=== PATIENT | male | born 1945 | race Caucasian/White ===

== ENCOUNTER 2020-01-07 10:18 | Inpatient (IN) | payer OTHER ==
[~2020-01-07] VITALS: Ht 180.3 cm; Wt 79.2 kg
[2020-01-07 12:54] VITALS: BP 127/72
[2020-01-07] MEDS ORDERED: TAMS0.4C97 PO (13:08)
[2020-01-07] MEDS ORDERED: CLOP75TA PO (13:08)
[2020-01-07] MEDS ORDERED: MELA5TAB20 PO (13:08)
[2020-01-07] MEDS ORDERED: LORA-254 PO (13:08)
[2020-01-07] MEDS ORDERED: VENL75CA6 PO (13:08)
[2020-01-07] MEDS ORDERED: DOCU100C28 PO (13:08)
[2020-01-07] MEDS ORDERED: BACL20TA PO (13:08)
[2020-01-07] MEDS ORDERED: PANT40TA6 PO (13:08)
[2020-01-07] MEDS ORDERED: FENO160T PO (13:08)
[2020-01-07] MEDS ORDERED: FOLI0.8C PO (13:08)
[2020-01-07] MEDS ORDERED: CITA40TA5 PO (13:08)
--- NOTE | 2020-01-07 13:35 | NUR ---
NURSING NOTE ADMIT PT ADMIT FOR RESPITE CARE AT 1300 WITH [facility]. PT IS A&OX3. PT DOES NOT HAVE ANY WOUNDS NOTED, DOES NEED TO FLOAT HIS HEELS, LOOKS TO BE A BIT CONTACTED IN THE KNEES AND LEFT HAND, UNABLE TO STAND, CISCO LIFT IF NEEDED. VITALS NURSE HERE AT BEDSIDE TO EVALUATE PT. PT MEDICATIONS ENTERED INTO COMPUTER AND SENT TO PHARMACY. WILL CONTINUE TO MONITOR. EVANGELIST VILLAGOMEZ. Addendum: 01/07/20 at 1633 by DAHLIA BROWN RN RN [facility] NURSE*
[2020-01-07] MEDS ORDERED: VENL37.5 PO (13:43)
[2020-01-07] MEDS ORDERED: LEVE100020 PO (13:43)
[2020-01-07] MEDS ORDERED: LORazepam 1 MG TABLET PO PRN (13:45)
[2020-01-07] MEDS ORDERED: MORPHINE SULFATE 20 MG/ML CONC SOLUTION. PO/SL PRN (14:00)
--- NOTE | 2020-01-07 16:34 | NUR ---
NURSING NOTE PT RESTING COMFORTABLY IN THE BED. PT REQUEST FOR COFFEE AND GIVEN EXTRA PILLOW. PT CALM AND COOPERATIVE WITH ALL CARES THUS FAR. USED URINAL IN BED. WILL CONTINUE TO MONITOR. EVANGELIST VILLAGOMEZ.
[2020-01-07] MEDS: BACLOFEN 20 MG TABLET PO SCH ×2 (17:11→20:26)
--- NOTE | 2020-01-07 18:28 | NUR ---
NURSING NOTE SPOKE WITH PT DAUGHTER ROWDY, WHO HAD CONCERNS ABOUT URINE RETENTION. PT HAD A WET BRIEF TODAY. BLADDER SCAN REVEALS 126MLS. WILL CONTINUE TO MONITOR. EVANGELIST VILLAGOMEZ.
[2020-01-07] MEDS: MELATONIN 3 MG TABLET PO SCH (20:26)
[2020-01-07] MEDS: levETIRAcetam 500 MG TABLET PO SCH (20:26)
[2020-01-07] MEDS: PANTOPRAZOLE 40 MG TABLET. PO SCH (20:27)
--- NOTE | 2020-01-08 00:03 | NUR ---
Nursing Note Pt pleasant calm and cooperative. Takes meds whole, denies complaints. called for an update, she was happy for the ability to make her own drGuanaco appointments. Pt is a turn needs total assist for bed mobility.
[2020-01-08 05:27] VITALS: BP 126/62
[2020-01-08] MEDS: TAMSULOSIN 0.4 MG CAP.ER.24H. PO SCH (08:48)
[2020-01-08] MEDS: CLOPIDOGREL BISULFATE 75 MG TABLET PO SCH (08:48)
[2020-01-08] MEDS: VENLAFAXINE XR 37.5 MG CAP.ER.24H. PO SCH (08:48)
[2020-01-08] MEDS: BACLOFEN 20 MG TABLET PO SCH ×4 (08:48→20:51)
[2020-01-08] MEDS: PANTOPRAZOLE 40 MG TABLET. PO SCH ×2 (08:48→20:51)
[2020-01-08] MEDS: FENOFIBRATE NANOCRYSTALLIZED 145 MG TABLET PO SCH (08:48)
[2020-01-08] MEDS: DOCUSATE SODIUM 100 MG CAPSULE PO SCH (08:48)
[2020-01-08] MEDS: FOLIC ACID 1 MG TABLET PO SCH (08:48)
[2020-01-08] MEDS: levETIRAcetam 500 MG TABLET PO SCH ×2 (08:48→20:51)
[2020-01-08] MEDS: CITALOPRAM 20 MG TABLET. PO SCH (08:48)
[2020-01-08] MEDS ORDERED: VENLAFAXINE XR 37.5 MG CAP.ER.24H. PO SCH (09:00)
[2020-01-08 10:54] VITALS: BP 118/60
--- NOTE | 2020-01-08 16:37 | HP ---
ADMIT DATE: HISTORY OF PRESENT ILLNESS: The patient is a 74-year-old male patient who was admitted for respite care. He is on hospice. On questioning him, he denied any complaint. Apparently, he lives at home with his and his past medical history is significant for right middle cerebral artery territory infarct with left-sided hemiplegia. He is mostly bedbound, wheelchair bound. He has a scooter at home. He has benign prostatic hypertrophy, seizure disorder, gastroesophageal reflux disease, and also hyperlipidemia according to him. PAST SURGICAL HISTORY: Unremarkable. ALLERGIES: He has no known drug allergies. MEDICATIONS: He is currently on venlafaxine 75 mg once a day, folic acid 1 mg once a day, fenofibrate 145 mg once a day, citalopram hydrobromide for Celexa 40 mg once a day, Flomax 0.4 mg daily, Colace 200 mg daily, Plavix 75 mg once a day, melatonin 6 mg at bedtime, Keppra 1000 mg twice a day, Protonix 40 mg twice a day, baclofen 20 mg 4 times a day, morphine sulfate 10 mg every 2 hours as needed, lorazepam 1 mg every 4 hours as needed. PHYSICAL EXAMINATION: GENERAL: On examining him, he looked pale, no jaundice, cyanosis, or thyromegaly. No jugular venous distention or limb edema. VITAL SIGNS: His heart rate was 56, blood pressure was 126/62, temperature was 98.1, respiratory rate was 18, and oxygen saturation was 92% on room air. HEAD, EYES, EARS, NOSE, AND THROAT: Showed normocephalic, atraumatic. NECK: Supple. CARDIAC: Normal first and second heart sounds. No gallop, rub, or murmur. CHEST: Clear to auscultation. No crepitation or rhonchi. ABDOMEN: Distended, soft, nontender. NEUROLOGIC: He was awake, alert, responding appropriately. He has left-sided hemiplegia. He apparently is incontinent of urine. PLAN: To continue with all his current medications. MRAÍA TRUJILLO MD DR: [email or web address]/vj JOB#: [id number] / [id number]
--- NOTE | 2020-01-08 16:41 | NUR ---
NSG NOTE; RESPITE CARE PT HERE FOR RESPITE CARE X 5 DAYS SO CAN SEE HER DOCTORS FOR APPTS PT NEEDS ASSIST FOR TQ2H UP TO WHEEL CHAIR USING LIFT WITH X2 ASSIST NEEDS SET UP FOR MEALS AND IS ABLE TO SLOWLY FEED HIMSELF HAS BEEN CONTINENT OF URINE TODAY USING URINAL WITH ASSIST
[2020-01-08] MEDS: MELATONIN 3 MG TABLET PO SCH (20:51)
[2020-01-09 05:49] VITALS: BP 123/67
[2020-01-09] MEDS: BACLOFEN 20 MG TABLET PO SCH ×4 (08:13→20:26)
[2020-01-09] MEDS: FENOFIBRATE NANOCRYSTALLIZED 145 MG TABLET PO SCH (08:13)
[2020-01-09] MEDS: CITALOPRAM 20 MG TABLET. PO SCH (08:14)
[2020-01-09] MEDS: CLOPIDOGREL BISULFATE 75 MG TABLET PO SCH (08:14)
[2020-01-09] MEDS: PANTOPRAZOLE 40 MG TABLET. PO SCH ×2 (08:14→20:25)
[2020-01-09] MEDS: DOCUSATE SODIUM 100 MG CAPSULE PO SCH (08:14)
[2020-01-09] MEDS: levETIRAcetam 500 MG TABLET PO SCH ×2 (08:14→20:26)
[2020-01-09] MEDS: FOLIC ACID 1 MG TABLET PO SCH (08:14)
[2020-01-09] MEDS: VENLAFAXINE XR 37.5 MG CAP.ER.24H. PO SCH (08:14)
[2020-01-09] MEDS: TAMSULOSIN 0.4 MG CAP.ER.24H. PO SCH (08:14)
[2020-01-09 11:17] VITALS: BP 121/67
--- NOTE | 2020-01-09 14:58 | NUR ---
NURSING NOTE: RESPITE CARE PT ADMITTED FOR RESPITE CARE X 5 DAYS. PT IN BED UPON ASSESSMENT AND MEDICATION ADMINISTRATION THIS AM. PT TAKES PILLS WHOLE. PT UP TO CHAIR WITH LIFT. PT FEEDS HIMSELF WITH SET UP HELP, PT TOLERATED MEALS WELL. PT HAS BEEN CONTINENT OF BOWEL AND BLADDER TODAY. PT HAS NO COMPLAINTS. WILL CONTINUE TO MONITOR. EVANGELIST UREÑA
[2020-01-09 20:13] VITALS: BP 120/64
[2020-01-09] MEDS: MELATONIN 3 MG TABLET PO SCH (20:25)
--- NOTE | 2020-01-10 04:28 | NUR ---
Pt pleasant and cooperative with cares this shift. Assisted with turning q2hrs. Pt cont vs incont of B+B at HS. Pt c/o constipation at beginning of shift. LBM 01/06. Noted active bowel sounds x4 quad. Encouraged fluids and pt took a prune juice. Pt has since had 2 small formed BM's through the night. Resting comfortably between turns.
[2020-01-10 07:53] VITALS: BP 128/56
[2020-01-10] MEDS: FOLIC ACID 1 MG TABLET PO SCH (08:16)
[2020-01-10] MEDS: TAMSULOSIN 0.4 MG CAP.ER.24H. PO SCH (08:16)
[2020-01-10] MEDS: VENLAFAXINE XR 37.5 MG CAP.ER.24H. PO SCH (08:16)
[2020-01-10] MEDS: CLOPIDOGREL BISULFATE 75 MG TABLET PO SCH (08:16)
[2020-01-10] MEDS: levETIRAcetam 500 MG TABLET PO SCH ×2 (08:16→21:35)
[2020-01-10] MEDS: DOCUSATE SODIUM 100 MG CAPSULE PO SCH (08:16)
[2020-01-10] MEDS: FENOFIBRATE NANOCRYSTALLIZED 145 MG TABLET PO SCH (08:16)
[2020-01-10] MEDS: CITALOPRAM 20 MG TABLET. PO SCH (08:16)
[2020-01-10] MEDS: PANTOPRAZOLE 40 MG TABLET. PO SCH ×2 (08:17→21:35)
[2020-01-10] MEDS: BACLOFEN 20 MG TABLET PO SCH ×4 (08:17→21:35)
[2020-01-10 20:25] VITALS: BP 119/55
[2020-01-10] MEDS: MELATONIN 3 MG TABLET PO SCH (21:34)
[2020-01-11 05:50] VITALS: BP 148/70
[2020-01-11 07:47] VITALS: BP 140/63
[2020-01-11] MEDS: FOLIC ACID 1 MG TABLET PO SCH (09:21)
[2020-01-11] MEDS: levETIRAcetam 500 MG TABLET PO SCH ×2 (09:21→20:52)
[2020-01-11] MEDS: TAMSULOSIN 0.4 MG CAP.ER.24H. PO SCH (09:21)
[2020-01-11] MEDS: PANTOPRAZOLE 40 MG TABLET. PO SCH ×2 (09:21→20:52)
[2020-01-11] MEDS: CITALOPRAM 20 MG TABLET. PO SCH (09:21)
[2020-01-11] MEDS: DOCUSATE SODIUM 100 MG CAPSULE PO SCH (09:21)
[2020-01-11] MEDS: BACLOFEN 20 MG TABLET PO SCH ×4 (09:21→20:52)
[2020-01-11] MEDS: FENOFIBRATE NANOCRYSTALLIZED 145 MG TABLET PO SCH (09:21)
[2020-01-11] MEDS: CLOPIDOGREL BISULFATE 75 MG TABLET PO SCH (09:21)
[2020-01-11] MEDS: VENLAFAXINE XR 37.5 MG CAP.ER.24H. PO SCH (09:21)
[2020-01-11 19:40] VITALS: BP 128/71
[2020-01-11] MEDS: MELATONIN 3 MG TABLET PO SCH (20:52)
--- NOTE | 2020-01-11 22:10 | NUR ---
Nursing Note: Pt lying in bed watching television at shift change. Pt A/O, calm, cooperative, and pleasant. Assistance with bed mobility and turn q2 hours provided. Pt compliant with medications administered whole, tolerated well. Pt able to make his needs known and is currently resting comfortably in bed.
[2020-01-12] MEDS: CLOPIDOGREL BISULFATE 75 MG TABLET PO SCH (08:11)
[2020-01-12] MEDS: FOLIC ACID 1 MG TABLET PO SCH (08:12)
[2020-01-12] MEDS: levETIRAcetam 500 MG TABLET PO SCH (08:12)
[2020-01-12] MEDS: BACLOFEN 20 MG TABLET PO SCH (08:12)
[2020-01-12] MEDS: CITALOPRAM 20 MG TABLET. PO SCH (08:12)
[2020-01-12] MEDS: VENLAFAXINE XR 37.5 MG CAP.ER.24H. PO SCH (08:12)
[2020-01-12] MEDS: TAMSULOSIN 0.4 MG CAP.ER.24H. PO SCH (08:12)
[2020-01-12] MEDS: DOCUSATE SODIUM 100 MG CAPSULE PO SCH (08:12)
[2020-01-12] MEDS: FENOFIBRATE NANOCRYSTALLIZED 145 MG TABLET PO SCH (08:12)
[2020-01-12] MEDS: PANTOPRAZOLE 40 MG TABLET. PO SCH (08:13)
[2020-01-12 11:29] VITALS: BP 146/61
--- NOTE | 2020-01-12 12:10 | NUR ---
Patient left via wheelchair in a stable condition. Patient had his belongings and secure transport was the transportation provider. Patient A&Ox4.
== END 2020-01-12 12:10 | disposition home or self-care (01) | DRG 57 ==
LOC: 1 SOUTH 12:44
PROVIDERS: ADMIT Internal Medicine; ATTEND Internal Medicine
DX: I69.354 Hemiplegia and hemiparesis following cerebral infarction affecting left non-dominant side (principal); Z51.5 Encounter for palliative care; E78.5 Hyperlipidemia, unspecified; G40.909 Epilepsy, unspecified, not intractable, without status epilepticus; R32 Unspecified urinary incontinence; K21.9 Gastro-esophageal reflux disease without esophagitis; N40.0 Benign prostatic hyperplasia without lower urinary tract symptoms; Z99.3 Dependence on wheelchair; Z74.01 Bed confinement status; Z75.5 Holiday relief care
CPT/HCPCS: Q5005